=== PATIENT | female | born 1975 | race Caucasian/White ===

== ENCOUNTER 2018-05-24 14:27 | Inpatient (IN) | payer BC ==
--- NOTE | 2018-05-24 15:01 | ED ---
General Adult HPI - General Chief complaint: Shortness of Breath Stated complaint: low blood pressure Time Seen by Provider: 05/24/18 14:30 Source: patient, RN notes reviewed Mode of arrival: ambulatory Limitations: no limitations - History of Present Illness Initial comments: This is a 42-year-old female presents to the emergency department after having an attempted knee surgery this morning. Patient was at the surgical site of when she states she was put under and intubated and her heart rate went up and her blood pressure went up and so she was given some blood pressure medication. This is all per the staff after she awoke. Patient states at this point in time they sent her to a primary medical care doctor's office she went to that office and was seen by PA the PA got a low blood pressure and her pulse ox at the time according to the PA was 91% and so he sent her to the emergency department. Patient has no complaints at this time other feeling a little bit tired and hungry she has anything since yesterday at 7 PM. Patient denies any shortness of breath or chest pain. Patient denies any fever chills per patient states she did have a cough earlier but is resolved and the cough did begin after she was put on here. Patient denies abdominal pain patient denies nausea vomiting. - Related Data Home Medications Medication Instructions Recorded Confirmed No Known Home Medications 05/24/18 05/24/18 Allergies Allergy/AdvReac Type Severity Reaction Status Date / Time No Known Allergies Allergy Verified 05/24/18 16:18 Review of Systems ROS Statement: Those systems with pertinent positive or pertinent negative responses have been documented in the HPI. ROS Other: All systems not noted in ROS Statement are negative. Past Medical History Past Medical History: No Reported History History of Any Multi-Drug Resistant Organisms: None Reported Past Surgical History: Section Additional Past Surgical History / Comment(s): partial thyroidectomy Past Psychological History: No Psychological Hx Reported Smoking Status: Never smoker Past Alcohol Use History: Occasional Past Drug Use History: None Reported General Exam - General Exam Comments Initial Comments: GENERAL: Patient is well-developed and well-nourished. Patient is nontoxic and well- hydrated and is in mild distress. ENT: Neck is soft and supple. No significant lymphadenopathy is noted. Oropharynx is clear. Moist mucous membranes. Neck has full range of motion without eliciting any pain. EYES: The sclera were anicteric and conjunctiva were pink and moist. Extraocular movements were intact and pupils were equal round and reactive to light. Eyelids were unremarkable. PULMONARY: Unlabored respirations. Good breath sounds bilaterally. Crackles bilaterally. CARDIOVASCULAR: There is a regular rate and rhythm without any murmurs gallops or rubs. ABDOMEN: Soft and nontender with normal bowel sounds. No palpable organomegaly was noted. There is no palpable pulsatile mass. SKIN: Skin is clear with no lesions or rashes and otherwise unremarkable. NEUROLOGIC: Patient is alert and oriented x3. Cranial nerves II through XII are grossly intact. Motor and sensory are also intact. Normal speech, volume and content. Symmetrical smile. MUSCULOSKELETAL: Normal extremities with adequate strength and full range of motion. LYMPHATICS: No significant lymphadenopathy is noted PSYCHIATRIC: Normal psychiatric evaluation. Limitations: no limitations Course Vital Signs 05/24/18 05/24/18 05/24/18 14:30 14:50 15:00 Temperature 98.3 F Pulse Rate 98 89 Respiratory 18 20 Rate Blood Pressure 99/66 104/75 104/75 O2 Sat by Pulse 95 96 Oximetry 05/24/18 05/24/18 15:38 16:00 Temperature Pulse Rate 95 Respiratory 18 31 H Rate Blood Pressure 97/69 97/69 O2 Sat by Pulse Oximetry Medical Decision Making - Medical Decision Making EKG shows normal sinus rhythm at 85 bpm NM interval 250 QRS is 88 QT interval 366 QTC is 435 per patient's EKG shows no ST segment elevation or depression or T wave abnormalities are noted. Chest x-ray shows acute pulmonary edema Patient's troponin was elevated. I spoke with Dr. Isaac he agreed the patient should be on heparin and start Lasix with the patient. I spoke with Dr. Romero he agreed to admit the patient I admitted the patient started patient on heparin and Lasix I continued Lasix on the floor. I continued heparin the floor as well. - Lab Data Result diagrams: 05/24/18 15:05 05/24/18 15:05 Lab Results 05/24/18 05/24/18 05/24/18 Range/Units 15:05 15:05 15:05 WBC 12.8 H (3.8-10.6) k/uL RBC 4.80 (3.80-5.40) m/uL Hgb 13.8 (11.4-16.0) gm/dL Hct 41.5 (34.0-46.0) % MCV 86.4 (80.0-100.0) fL MCH 28.7 (25.0-35.0) pg MCHC 33.2 (31.0-37.0) g/dL RDW 14.2 (11.5-15.5) % Plt Count 260 (150-450) k/uL Neutrophils % 93 % Lymphocytes % 5 % Monocytes % 1 % Eosinophils % 1 % Basophils % 0 % Neutrophils # 11.8 H (1.3-7.7) k/uL Lymphocytes # 0.7 L (1.0-4.8) k/uL Monocytes # 0.1 (0-1.0) k/uL Eosinophils # 0.1 (0-0.7) k/uL Basophils # 0.0 (0-0.2) k/uL PT 10.0 (9.0-12.0) sec INR 0.9 (<1.2) APTT 22.5 (22.0-30.0) sec Sodium 138 (137-145) mmol/L Potassium 4.2 (3.5-5.1) mmol/L Chloride 104 (98-107) mmol/L Carbon Dioxide 22 (22-30) mmol/L Anion Gap 12 mmol/L BUN 12 (7-17) mg/dL Creatinine 0.51 L (0.52-1.04) mg/dL Est GFR (CKD-EPI)AfAm >90 (>60 ml/min/1.73 sqM) Est GFR (CKD-EPI)NonAf >90 (>60 ml/min/1.73 sqM) Glucose 136 H (74-99) mg/dL Calcium 9.4 (8.4-10.2) mg/dL Magnesium 1.9 (1.6-2.3) mg/dL Total Bilirubin 0.5 (0.2-1.3) mg/dL AST 76 H (14-36) U/L ALT 113 H (9-52) U/L Alkaline Phosphatase 62 (38-126) U/L Troponin I (0.000-0.034) ng/mL Total Protein 7.6 (6.3-8.2) g/dL Albumin 4.4 (3.5-5.0) g/dL 04/17/19 Range/Units 15:05 WBC (3.8-10.6) k/uL RBC (3.80-5.40) m/uL Hgb (11.4-16.0) gm/dL Hct (34.0-46.0) % MCV (80.0-100.0) fL MCH (25.0-35.0) pg MCHC (31.0-37.0) g/dL RDW (11.5-15.5) % Plt Count (150-450) k/uL Neutrophils % % Lymphocytes % % Monocytes % % Eosinophils % % Basophils % % Neutrophils # (1.3-7.7) k/uL Lymphocytes # (1.0-4.8) k/uL Monocytes # (0-1.0) k/uL Eosinophils # (0-0.7) k/uL Basophils # (0-0.2) k/uL PT (9.0-12.0) sec INR (<1.2) APTT (22.0-30.0) sec Sodium (137-145) mmol/L Potassium (3.5-5.1) mmol/L Chloride (98-107) mmol/L Carbon Dioxide (22-30) mmol/L Anion Gap mmol/L BUN (7-17) mg/dL Creatinine (0.52-1.04) mg/dL Est GFR (CKD-EPI)AfAm (>60 ml/min/1.73 sqM) Est GFR (CKD-EPI)NonAf (>60 ml/min/1.73 sqM) Glucose (74-99) mg/dL Calcium (8.4-10.2) mg/dL Magnesium (1.6-2.3) mg/dL Total Bilirubin (0.2-1.3) mg/dL AST (14-36) U/L ALT (9-52) U/L Alkaline Phosphatase (38-126) U/L Troponin I 0.428 H* (0.000-0.034) ng/mL Total Protein (6.3-8.2) g/dL Albumin (3.5-5.0) g/dL Critical Care Time Critical Care Time: Yes Total Critical Care Time: 35 Disposition Clinical Impression: Acute pulmonary edema, Non-STEMI (non-ST elevated myocardial infarction) Disposition: ADMITTED IP TO THIS HOSP Referrals: [place], PAC [Primary Care Provider] - 1-2 days Time of Disposition: 16:29
[2018-05-24 15:19] LABS: Basophils % (A) 0 %; Eosinophils # (A) 0.1 k/uL (0-0.7); Eosinophils % (A) 1 %; HCT 41.5 % (34.0-46.0); HGB 13.8 gm/dL (11.4-16.0); Lymphocytes # (A) 0.7 k/uL (1.0-4.8); Lymphocytes % (A) 5 %; MCH 28.7 pg (25.0-35.0); MCHC 33.2 g/dL (31.0-37.0); MCV 86.4 fL (80.0-100.0); Mean Platelet Volume 7.3; Monocytes # (A) 0.1 k/uL (0-1.0); Monocytes % (A) 1 %; Neutrophils # (A) 11.8 k/uL (1.3-7.7); Neutrophils % (A) 93 %; Platelet Count 260 k/uL (150-450); RDW 14.2 % (11.5-15.5); WBC 12.8 k/uL (3.8-10.6)
[2018-05-24 15:31] LABS: INR 0.9 (<1.2); Partial Thromboplastin Time 22.5 sec (22.0-30.0)
[2018-05-24 15:38] LABS: ALT 113 U/L (9-52); AST 76 U/L (14-36); Albumin 4.4 g/dL (3.5-5.0); Alkaline Phosphatase 62 U/L (38-126); Anion Gap 12 mmol/L; Blood Urea Nitrogen 12 mg/dL (7-17); Calcium 9.4 mg/dL (8.4-10.2); Carbon Dioxide 22 mmol/L (22-30); Chloride 104 mmol/L (98-107); Glucose 136 mg/dL (74-99); Magnesium 1.9 mg/dL (1.6-2.3); Potassium 4.2 mmol/L (3.5-5.1); Sodium 138 mmol/L (137-145); Total Bilirubin 0.5 mg/dL (0.2-1.3); Total Protein 7.6 g/dL (6.3-8.2)
--- NOTE | 2018-05-24 15:54 | XR ---
EXAMINATION TYPE: XR chest 2V DATE OF EXAM: 05/24/2018 COMPARISON: NONE HISTORY: Chest pain per order. Increased heart rate and blood pressure. TECHNIQUE: Frontal and lateral views of the chest are obtained. FINDINGS: The cardiac silhouette size is mildly enlarged. Central bilateral opacities are present. N o pleural effusion or pneumothorax is seen bilaterally. Overlying EKG leads are seen. The osseous st ructures are intact. IMPRESSION: Correlate for CHF exacerbation as there is mild cardiomegaly with suspected mild to mode rate bilateral central alveolar edema. Correlate clinically to exclude bilateral acute infiltrates.
[2018-05-24] MEDS ORDERED: FUROSEMIDE 10 MG/ML 2 ML VIAL IV STA (16:24)
[2018-05-24] MEDS ORDERED: HEPARIN SODIUM,PORCINE 5,000 UNIT/ML 1 ML VIAL IV ONE (16:25)
[2018-05-24] MEDS ORDERED: NITROGLYCERIN SL TABS 0.4 MG TAB SUBLINGUAL PRN (16:30)
[2018-05-24] MEDS: HEPARIN SOD,PORK IN 0.45% NACL 25,000 UNIT in 0.45% NACL 1 250ML.BAG IV SCH (17:42)
[2018-05-25 00:05] VITALS: BMI 47.7
[2018-05-25 04:27] LABS: Cholesterol 183 mg/dL (<200); HDL Cholesterol 59 mg/dL (40-60); LDL Cholesterol,Calculated 109 mg/dL (0-99); Triglycerides 77 mg/dL (<150)
[2018-05-25] MEDS: HEPARIN SOD,PORK IN 0.45% NACL 25,000 UNIT in 0.45% NACL 1 250ML.BAG IV SCH (04:53)
[2018-05-25] MEDS: FUROSEMIDE 10 MG/ML 2 ML VIAL IV SCH ×2 (04:57→09:17)
--- NOTE | 2018-05-25 07:32 | ECHOF ---
Referral Reason:Acute pulmonary edema MEASUREMENTS -------- HEIGHT: 162.6 cm WEIGHT: 126.1 kg BP: IVSd: 0.9 cm (0.6 - 1.1) LVIDd: 5.6 cm (3.9 - 5.3) LVPWd: 1.0 cm (0.6 - 1.1) IVSs: 1.1 cm LVIDs: 4.6 cm LVPWs: 1.4 cm Ao Diam: 2.7 cm (2.0 - 3.7) AV Cusp: 1.4 cm (1.5 - 2.6) LA Diam: 2.4 cm (2.7 - 3.8) MV EXCURSION: 17.354 mm (> 18.000) MV EF SLOPE: 107 mm/s (70 - 150) EPSS: 0.6 cm MV E Dick: 0.71 m/s MV DecT: 174 ms MV A Dick: 1.06 m/s MV E/A Ratio: 0.67 RAP: 5.00 mmHg RVSP: 16.30 mmHg FINDINGS -------- Sinus rhythm. This was a technically difficult study with suboptimal views. The left ventricular size is normal. Left ventricular wall thickness is normal. Overall left vent ricular systolic function is moderately impaired with, an EF between 35 - 40 %. Mid to Basal inferos eptal LV wall motion is hypokinetic. Basal inferolateral hypokinesis. The right ventricle is normal in size. The left atrial size is normal. The right atrial size is normal. 5.0mg of Lumason was utilized for enhancement of images The aortic valve is trileaflet and appears structurally normal. Mild mitral regurgitation is present. Trace tricuspid regurgitation present. The right ventricular systolic pressure, as measured by Dopp ler, is 16.30mmHg. There is no pulmonic regurgitation present. The aortic root size is normal. IVC Not well visulized. There is no pericardial effusion. CONCLUSIONS -------- 1. Sinus rhythm. 2. This was a technically difficult study with suboptimal views. 3. The left ventricular size is normal. 4. Left ventricular wall thickness is normal. 5. Overall left ventricular systolic function is moderately impaired with, an EF between 35 - 40 %. 6. Basal inferoseptal LV wall motion is hypokinetic. 7. Mid to Basal inferolateral hypokinesis. 8. The right ventricle is normal in size. 9. The left atrial size is normal. 10. The right atrial size is normal. 11. 5.0mg of Lumason was utilized for enhancement of images 12. The aortic valve is trileaflet and appears structurally normal. 13. Mild mitral regurgitation is present. 14. Trace tricuspid regurgitation present. 15. The right ventricular systolic pressure, as measured by Doppler, is 16.30mmHg. 16. There is no pulmonic regurgitation present. 17. The aortic root size is normal. 18. IVC Not well visulized. 19. There is no pericardial effusion. AMMUNITION SPECIALIST: Corina Denson RDCS
[2018-05-25] MEDS ORDERED: ASPIRIN 325 MG TAB PO SCH (09:00)
[2018-05-25] MEDS ORDERED: LISINOPRIL 2.5 MG TAB PO SCH (09:15)
--- NOTE | 2018-05-25 09:29 | CONS ---
CONSULTATION DATE OF CONSULTATION: 05/24/2018 This is a 42-year-old lady that I saw in the emergency room when she presented with symptoms of shortness of breath and elevated troponin. The patient was at the [facility] for an arthroscopy and following the arthroscopy apparently had some issues. We are not quite sure what they were, was sent to her primary care physician. From there, she showed up in the emergency room at [facility]. Her first set of troponin was slightly elevated at 0.42 for which Cardiology had been consulted. Her EKG showed sinus rhythm without significant ST-T wave changes. An echocardiogram revealed LV systolic dysfunction with wall motion abnormalities with an ejection fraction of 35% to 40%. Her inferoseptal and inferolateral wall appear hypokinetic. The patient was treated with intravenous heparin, aspirin and nitrates and she remained essentially symptom-free in fact she did not have any symptoms even when we first met her in the ER. I talked to her at length, explained to her her condition, the various etiological possibilities and the plan was to watch her overnight. PAST MEDICAL HISTORY: Past medical history is negative for hypertension, diabetes, dyslipidemia. MEDICATIONS: None. ALLERGIES: None. FAMILY HISTORY: Family history is negative for premature coronary artery disease. SOCIAL HISTORY: She denies smoking, EtOH abuse or drug abuse. REVIEW OF SYSTEMS: HEENT is unremarkable. CARDIAC: As described above. RESPIRATORY: Negative. GI: Negative. GENITOURINARY: Negative. ALLERGY/IMMUNOLOGY: Negative. SKIN: Negative. MUSCULOSKELETAL: Negative. ENDOCRINE: Negative. HEMATOLOGICAL: Negative. PSYCHOSOCIAL: Negative. The rest of the system review is not relevant. PHYSICAL EXAMINATION: On exam, she is comfortable at rest. Vital signs are stable. There is no jugular venous distention. Chest exam reveals good air entry bilaterally. Heart exam reveals first and second heart sounds. No gallop. No murmur. No rub. Abdomen is soft, nontender. Examination of extremities did not reveal any edema. Peripheral pulses are felt. Her O2 saturation was normal in room air. Initial lab showed a hemoglobin of 13.8, platelet count is 260. Troponin is slightly elevated. Creatinine is normal. ASSESSMENT: Qwe-FC-[id number] elevation myocardial infarction. PLAN: Patient will be treated with intravenous heparin, aspirin and see how her symptoms and clinical course evolves and decide on further course of action. MMODL / IJN: [id number] /
--- NOTE | 2018-05-25 09:32 | PN ---
PROGRESS NOTE Brenda is a 42-year-old lady whom I initially evaluated in the emergency room yesterday following her initial presentation due to some issues during anesthesia during an arthroscopy. The exact events of that time are unclear. She has been in the hospital overnight and her troponin levels have come down. Her total cholesterol is 183, LDL is 109, HDL is normal. Her troponins were 0.4, 0.4 and 0.3. She denies any chest pain. Echo shows wall motion abnormalities and LV systolic dysfunction. It is unclear whether this is new or old. I explained all the issues at length to the patient and advised her to undergo cardiac catheterization today to evaluate her coronary anatomy and her management. Understanding risks, benefits, she does not wish to go through cardiac cath but wishes to manage with medical therapy and have reassessment of her LV function. We will consider repeating an echo on her over the next several weeks and also consider an outpatient stress test. On exam today, she is comfortable at rest. Vital signs are stable. There is no jugular venous distention. Carotid upstroke is normal. There is no bruit. Chest exam reveals good air entry bilaterally. Heart exam reveals first and second heart sounds. No gallop. No murmur. No rub. Abdomen is soft, nontender. Examination of extremities did not reveal edema. Peripheral pulses are felt. ASSESSMENT: Non ST-segment elevation myocardial infarction. PLAN: I will add beta blockers, JAYNA inhibitors. Continue the aspirin. Stop the heparin this afternoon and we will get her up, ambulate her and see how she does. MMODL / IJN: [id number] /
[2018-05-25] MEDS ORDERED: NITROGLYCERIN SL TABS 0.4 MG TAB SUBLINGUAL PRN (11:22)
[2018-05-25] MEDS ORDERED: ALPRAZolam 0.25 MG TAB PO PRN (11:22)
[2018-05-25] MEDS ORDERED: SODIUM CHLORIDE 0.9% 1,000 ML in EMPTY BAG 1 BAG IV ONE (11:22)
[2018-05-25] MEDS ORDERED: ATORVASTATIN 80 MG TAB PO STA (11:22)
[2018-05-25] MEDS ORDERED: ASPIRIN 325 MG TAB PO STA (11:22)
[2018-05-25] MEDS ORDERED: ALPRAZolam 0.5 MG TAB PO PRN (11:22)
[2018-05-25] MEDS: METOPROLOL SUCCINATE (ER) 25 MG TAB.ER.24H PO SCH (11:59)
--- NOTE | 2018-05-25 13:08 | P.HPIM ---
History of Present Illness H&P Date: 05/25/18 This is a 42-year-old female patient presents to ER with complaints of elevated heart rate and blood pressure during attempted knee scope chest scope procedure this AM. Patient was instructed to her PCP where she was told she had low blood pressure and low pulse ox was sent to the ER for further evaluation. Patient denies any symptoms other than abnormal vitals. Patient denies any significant medical history. Patient reports she's had a AND partial thyroidectomy. Patient denies cardiac history. Patient denies any significant family history of cardiac disease. Patient denies smoking. Patient denies any recent illness. Patient denies cough or shortness of breath. Patient denies fever nausea or vomiting. Chest x-ray completed showing correlation for CHF exacerbation is very mild cardiomegaly with suspected mild to moderate lateral central annular edema. Correlate clinically to exclude bilateral acute infiltrates. EKG completed showing normal sinus rhythm with moderate voltage criteria for LVH may be variant. Patient having elevated troponins at 0.428, 0.474 and 0.305. Patient has been started on heparin drip and cardiology services have been consulted. 2-D echo completed showing EF of 35-40% with mid to basal inferior septal LV wall motion. Discussed case with cardiology nurse practitioner. Patient will undergo cardiac catheterization today. At this time patient is tearful. Patient states she just feels overwhelmed with this new information. Patient's at bedside. At this time patient denies chest pain or shortness breath. Patient denies nausea vomiting or diarrhea. Patient denies any urinary burning or frequency Review of Systems please refer to HPI otherwise unremarkable Past Medical History Past Medical History: No Reported History History of Any Multi-Drug Resistant Organisms: None Reported Past Surgical History: Section Additional Past Surgical History / Comment(s): partial thyroidectomy Additional Past Anesthesia/Blood Transfusion Reaction / Comment(s): patient was told her blood pressure and heart rate increased when put under for knee scope 05/24/18, unsure of medications given. Past Psychological History: No Psychological Hx Reported Smoking Status: Never smoker Past Alcohol Use History: Occasional Past Drug Use History: None Reported Medications and Allergies Home Medications Medication Instructions Recorded Confirmed Type No Known Home Medications 05/24/18 05/24/18 History Allergies Allergy/AdvReac Type Severity Reaction Status Date / Time No Known Allergies Allergy Verified 05/24/18 16:18 Physical Exam Vitals: Vital Signs Temp Pulse Pulse Resp BP BP Pulse Ox 05/25/18 07:50 15 05/25/18 04:00 98.4 F 84 15 128/83 97 05/25/18 00:00 91 18 137/85 97 05/24/18 20:00 91 18 05/24/18 19:59 98.0 F 92 18 125/75 98 05/24/18 18:47 91 18 122/72 96 05/24/18 18:30 122/72 05/24/18 18:00 95 34 H 120/71 05/24/18 17:33 99.1 F 104 H 18 154/83 96 05/24/18 17:00 71 18 111/75 05/24/18 16:30 84 16 107/72 05/24/18 16:00 95 31 H 97/69 05/24/18 15:38 18 97/69 05/24/18 15:00 89 20 104/75 05/24/18 14:50 104/75 96 05/24/18 14:30 98.3 F 98 18 99/66 95 Intake and Output 05/24/18 05/25/18 05/25/18 22:59 06:59 14:59 Intake Total 111.833 0 Balance 111.833 0 Intake: Intake, IV Titration 111.833 Amount Heparin Sod,Pork in 0.45% 111.833 NaCl 25,000 unit In 0.45 % NaCl 1 250ml.bag @ 7. 925 UNITS/KG/HR 10 mls/hr IV .Q24H [facility] Rx#: [id number] Oral 0 Other: Voiding Method Toilet # Voids 1 1 Weight 123.8 kg Head normocephalic Neck supple Lungs clear to auscultation bilaterally no wheezing or crackles Heart regular rate and rhythm S1-S2, no rub or gallop Abdomen is soft nontender nondistended positive bowel sounds no hepa tosplenomegaly Extremities no edema Neuro alert and orientated to 3 Results CBC & Chem 7: 05/24/18 15:05 05/24/18 15:05 Labs: Abnormal Lab Results - Last 24 Hours (Table) 05/24/18 05/24/18 05/24/18 Range/Units 15:05 15:05 15:05 WBC 12.8 H (3.8-10.6) k/uL Neutrophils # 11.8 H (1.3-7.7) k/uL Lymphocytes # 0.7 L (1.0-4.8) k/uL APTT (22.0-30.0) sec Creatinine 0.51 L (0.52-1.04) mg/dL Glucose 136 H (74-99) mg/dL AST 76 H (14-36) U/L ALT 113 H (9-52) U/L Troponin I 0.428 H* (0.000-0.034) ng/mL LDL Cholesterol, Calc (0-99) mg/dL 05/24/18 05/25/18 05/25/18 Range/Units 21:09 00:04 02:38 WBC (3.8-10.6) k/uL Neutrophils # (1.3-7.7) k/uL Lymphocytes # (1.0-4.8) k/uL APTT 50.3 H (22.0-30.0) sec Creatinine (0.52-1.04) mg/dL Glucose (74-99) mg/dL AST (14-36) U/L ALT (9-52) U/L Troponin I 0.474 H* 0.305 H* (0.000-0.034) ng/mL LDL Cholesterol, Calc (0-99) mg/dL 05/25/18 05/25/18 Range/Units 02:41 07:52 WBC (3.8-10.6) k/uL Neutrophils # (1.3-7.7) k/uL Lymphocytes # (1.0-4.8) k/uL APTT 54.9 H (22.0-30.0) sec Creatinine (0.52-1.04) mg/dL Glucose (74-99) mg/dL AST (14-36) U/L ALT (9-52) U/L Troponin I (0.000-0.034) ng/mL LDL Cholesterol, Calc 109 H (0-99) mg/dL Thrombosis Risk Factor Assmnt - Choose All That Apply Any of the Below Risk Factors Present?: Yes Each Factor Represents 1 point: Obesity (BMI >25) Other Risk Factors: No Other congenital or acquired thrombophilia - If yes, enter type in comment: No Thrombosis Risk Factor Assessment Total Risk Factor Score: 1 Thrombosis Risk Factor Assessment Level: Low Risk Assessment and Plan Assessment: 1. Non-ST segment elevated myocardial infarction. Patient is currently on heparin drip. Patient troponins elevated at 0.48, 0.474 and 0.305. Patient started on heparin drip. Cardiology services have been consulted. Planning cardiac cath today. 2-D echo completed showing EF of 35-40%. 2. CHF. Cardiology services are following. Patient started on Lasix 20 mg every 12 hours. Chest x-ray completed showing correlation for CHF exacerbation as there is mild cardiomegaly with suspected mild to moderate bilateral central alveolar edema. Correlate clinically to exclude bilateral acute infiltrates. 3. Recent knee procedure. They were unable to complete episodes due to elevated heart rate and blood pressure 4. History of 5. History of partial thyroidectomy Patient currently on heparin drip Cardiac cath today or tomorrow Repeat chest x-ray ordered Lasix 20 mg every 12 hours Time with Patient: Greater than 30 (Greater than 60% of the total time spent in counseling and coordination of care. I performed an examination of the patient and discussed their management with the Nurse Practitioner. I have reviewed the Nurse Practitioner's notes and agree with the documented findings and plan of care)
[2018-05-25] MEDS ORDERED: LIDOCAINE 1% INJ 10MG/ML (20 ML MDV) ONE (13:57)
[2018-05-25] MEDS ORDERED: fentaNYL (PF) 50 MCG/ML 2 ML AMP ONE (13:58)
[2018-05-25] MEDS ORDERED: IV FLUID CONTINUATION 300 ML IV ONE (14:25)
[2018-05-25] MEDS ORDERED: MIDAZOLAM (PF) 2 MG/2 ML VIAL IVP ONE (14:25)
[2018-05-25] MEDS ORDERED: LIDOCAINE 1% INJ 10MG/ML (20 ML MDV) SQ ONE (14:27)
[2018-05-25] MEDS ORDERED: fentaNYL (PF) 50 MCG/ML 2 ML AMP IV ONE (14:32)
[2018-05-25] MEDS ORDERED: RX INFO: IV CONTRAST WAS GIVEN 1 EACH MISC MISCELLANE PRN (14:50)
[2018-05-25] MEDS ORDERED: IOPAMIDOL-370 100ML BTL INJ ONE (14:57)
[2018-05-25] MEDS: SODIUM CHLORIDE 0.9% 1,000 ML IV SCH (18:18)
--- NOTE | 2018-05-25 20:02 | CC ---
CARDIAC CATHETERIZATION REPORT INDICATION: Non ST-segment elevation LA. PROCEDURE NOTE: After obtaining informed consent, left heart catheterization and coronary angiogram are performed via the right femoral artery using standard Radhames catheters the patient tolerated the procedure well without any obvious immediate complications. A femoral angiogram was performed and Angio-Seal was deployed for hemostasis. The patient has received moderate conscious sedation. Total sedation time was 15 minutes. HEMODYNAMICS: Left ventricular end-diastolic pressure is 4 to 6 mm. There is no significant gradient across aortic valve. LEFT VENTRICULOGRAM: Left ventriculogram is performed in PRYOR position and shows normal left ventricular size and wall motion. Ejection fraction is 65%. ANGIOGRAPHIC DATA: LEFT MAIN CORONARY ARTERY: Left main coronary artery is a normal-sized vessel and is free of stenosis. Divides into left anterior descending coronary artery and circumflex coronary arteries. LEFT ANTERIOR DESCENDING CORONARY ARTERY: LAD and its branches, circumflex coronary artery and its branches are free of significant stenosis. RIGHT CORONARY ARTERY: There was significant dampening in the right coronary artery. Hence we only obtained 1 view, but it shows small right coronary artery. CONCLUSION: Normal coronaries. Normal LV function. Normal wall motion. PLAN: The exact etiology for the patient's clinical presentation yesterday is unclear. She was to undergo arthroscopy, apparently has had issues and was sent to primary care physician, from there was sent to the emergency room. We do not have any information from that time as to what exactly transpired. She had mild troponin elevation could be related to could be stress induced and there were also wall motion abnormalities. The LV gram looks normal. She does not require antiplatelet agent. Does not have significant obstructive CAD. She will work on risk factor modification and will be placed on beta blockers and JAYNA inhibitors for the next several weeks and if she is doing well, I will stop that too. If the patient still needs arthroscopy of the knee please do it in the hospital instead of doing it at an outpatient stand-alone surgical center. MMODL / IJN: [id number] /
[2018-05-25] MEDS ORDERED: ATORVASTATIN 20 MG TAB PO SCH (21:00)
[2018-05-26] MEDS: SODIUM CHLORIDE 0.9% 1,000 ML IV SCH (06:35)
[2018-05-26] MEDS ORDERED: PANTOPRAZOLE 40 MG TABLET PO SCH (07:30)
[2018-05-26 07:32] LABS: Basophils # (A) 0.1 k/uL (0-0.2); Basophils % (A) 1 %; Eosinophils # (A) 0.1 k/uL (0-0.7); Eosinophils % (A) 1 %; HCT 39.9 % (34.0-46.0); HGB 12.8 gm/dL (11.4-16.0); Lymphocytes # (A) 2.3 k/uL (1.0-4.8); Lymphocytes % (A) 25 %; MCH 28.1 pg (25.0-35.0); MCHC 32.1 g/dL (31.0-37.0); MCV 87.4 fL (80.0-100.0); Monocytes # (A) 0.6 k/uL (0-1.0); Monocytes % (A) 7 %; Neutrophils # (A) 6.1 k/uL (1.3-7.7); Neutrophils % (A) 65 %; Platelet Count 246 k/uL (150-450); RBC 4.57 m/uL (3.80-5.40); WBC 9.4 k/uL (3.8-10.6)
[2018-05-26 07:45] LABS: ALT 116 U/L (9-52); AST 60 U/L (14-36); Albumin 4.3 g/dL (3.5-5.0); Alkaline Phosphatase 57 U/L (38-126); Anion Gap 9 mmol/L; Blood Urea Nitrogen 13 mg/dL (7-17); Calcium 9.1 mg/dL (8.4-10.2); Carbon Dioxide 23 mmol/L (22-30); Chloride 107 mmol/L (98-107); Glucose 99 mg/dL (74-99); Potassium 4.1 mmol/L (3.5-5.1); Sodium 139 mmol/L (137-145); Total Bilirubin 0.7 mg/dL (0.2-1.3); Total Protein 7.4 g/dL (6.3-8.2)
[2018-05-26] MEDS: METOPROLOL SUCCINATE (ER) 25 MG TAB.ER.24H PO SCH (09:04)
[2018-05-26] MEDS ORDERED: METOPROLOL TARTRATE 12.5 MG TAB PO SCH (09:15)
--- NOTE | 2018-05-26 09:26 | XR ---
EXAMINATION TYPE: XR chest 2V DATE OF EXAM: 05/26/2018 COMPARISON: 05/24/2018 TECHNIQUE: PA and lateral views submitted. HISTORY: Abnormal x-ray FINDINGS: Persistent diffuse interstitial pattern which may be slightly improved on today's exam. More nodular component the right lower lobe. No pleural effusion or pneumothorax. Heart size stable. Heart remains mildly enlarged. IMPRESSION: Improving interstitial pattern correlate for improving CHF or interstitial pneumonia. Fol low-up to resolution recommended to exclude nodule right lung base.
--- NOTE | 2018-05-26 11:48 | CDI ---
Documentation Clarification Form Date: 05/26/2018 11:37:01 AM From: Steffanie ShcmidtChristensenDANA, CCDS Admit Date: 05/24/2018 4:30:00 PM Patient Name: Brenda Navarro Visit Number: [id number] Discharge Date: ATTENTION: The Clinical Documentation Specialists (CDI) and [facility] Coding Staff appreciate your assistance in clarifying documentation. Please respond to the clarification below the line at the bottom and electronically sign. The CDI & [facility] Coding staff will review the response and follow-up if needed. Please note: Queries are made part of the Legal Health Record. If you have any questions, please contact the author of this message via ITS. Dr. Carlos Romero: CHF is documented in the initial CXR, the History & Physical & the subsequent CXR. Diagnosed with NSTEMI. History/Risk Factors: No significant history. Clinical Indicators: Presents to ER with complaints of elevated heart rate and blood pressure during attempted knee scope chest scope procedure this AM. Patient was instructed by her PCP she was told she had low blood pressure and low pulse ox was sent to the ER for further evaluation. Patient denies any symptoms other than abnormal vitals. VS: BP 99/66 LAB: Troponins: 0.4, 0.5, 0.3 Echocardiogram Results: EF 35-40% systolic impaired. Mld TR, Trace TR. Chest X Ray 05/24: Correlate for CHF exacerbation as there is mild cardiomegaly with suspected mild to moderate bilateral central alveolar edema. Chest X Ray 05/26: Improving interstitial pattern correlate for improving CHF or interstitial pneumonia. Treatment: IV Lasix, IV Heparin drip, Nitro sl, Asa po. To labor relations manager: normal coronary arteries. In your professional opinion, can you please clarify the acuity and type of CHF if known? Congestive Heart Failure ruled out Systolic Heart Failure: o Acute o Chronic o Acute on Chronic Diastolic Heart Failure: o Acute o Chronic o Acute on Chronic Systolic & Diastolic Heart Failure: o Acute o Chronic o Acute on Chronic Heart Failure Unable to Determine Other, please specify Acute systolic congestive heart failure (Last Revision: May 2017) MTDD
[2018-05-26] MEDS ORDERED: LISINOPRIL 2.5 MG TAB PO SCH (12:00)
--- NOTE | 2018-05-26 12:02 | P.PN ---
Subjective Progress Note Date: 05/26/18 6 pleasant 42-year-old female who initially presented to the hospital with symptoms of shortness of breath. [facility], following administration of anesthesia, the patient became very tachycardic and hypertensive, subsequent hypotension and hypoxia. Therefore the procedure was not performed. She was advised to come to the hospital for further evaluation and treatment. Her echo revealed an ejection fraction of 35- 45% with inferior septal and inferior lateral wall hypokinesia. EKG showed normal sinus rhythm with nonspecific ST-T wave changes. Patient was also noted to have abnormality in her troponin of 0.42, 0.47 and 0.30. For these reasons she was advised to undergo cardiac catheterization. The risks and the benefits have been explained to the patient in detail. Cardiac catheterization revealed normal coronary arteries. The exact etiology for the patient's clinical presentation is unclear. It is possible that it may be an element of stress cardiomyopathy, could also be secondary to tachycardia and hypoxia. At this point in time, patient may be able to be discharged home from our perspective, a repeat echo will be performed in 2-[address] I pressure this morning 108/58 with a heart rate in the 70s, 97% on room air. White blood cell count 9.4, hemoglobin 12.8, platelet count 246. Sodium 139, potassium 4.1, BUN 13 and creatinine 0.5. AST 60 ALT 116 alk phos 57. Patient overall feels well, denies any shortness of breath, no chest discomfort, no dizziness or lightheadedness. Objective - Vital Signs Vital signs: Vital Signs Temp 98.1 F 05/26/18 04:00 Pulse 75 05/26/18 04:00 Resp 16 05/26/18 04:00 BP 107/57 05/26/18 04:00 Pulse Ox 97 05/26/18 04:00 Intake & Output 05/25/18 05/26/18 05/26/18 18:59 06:59 18:59 Intake Total 500 120 Balance 500 120 Weight 123.7 kg Intake: IV 200 Oral 300 120 Other: Voiding Method Toilet Toilet # Voids 2 1 - Exam PHYSICAL EXAMINATION: GENERAL: 42-year-old female in no acute distress at the time of my examination HEENT: Head is atraumatic, normocephalic. Pupils equal, round. Sclera anicteric. Conjunctiva are clear. Mucous membranes of the mouth are moist. Neck is supple. There is no elevated jugular venous pressure. No carotid bruit is heard. HEART EXAMINATION: Heart S1, S2 normal. No murmur or gallop heard. CHEST EXAMINATION: Lungs are clear to auscultation and precussion. No chest wall tenderness is noted on palpation or with deep breathing. ABDOMEN: Soft, nontender. Bowel sounds are heard. No organomegaly noted. EXTREMITIES: 2+ peripheral pulses with no evidence of peripheral edema and no calf tenderness noted. Right groin is soft, no evidence of any hematoma. NEUROLOGIC patient is awake, alert and oriented 3 . . - Labs CBC & Chem 7: 05/26/18 06:59 05/26/18 06:59 Labs: Abnormal Lab Results - Last 24 Hours (Table) 05/26/18 Range/Units 06:59 AST 60 H (14-36) U/L ALT 116 H (9-52) U/L Assessment and Plan Plan: Assessment and plan #1 symptoms of shortness of breath with associated tachycardia and hypoxia. Abnormality noted in troponins. LV function 35-40%. Status post cardiac catheterization which revealed normal coronary arteries. Plan From cardiology's perspective, it is possible that the patient's LV dysfunction and abnormality in troponin could be secondary to a type of stress steroids myopathy, also could be secondary to tachycardia and hypoxia. From cardiology's perspective, patient may be able to be discharged home today. She may proceed with her arthroscopic procedure, however Dr. Delarosa's recommendations are that she has a performed here at [facility]. Follow-up appointment will be made with Dr. Delarosa in the office post discharge. We will continue the patient on Lipitor 20 mg daily, lisinopril 2.5 mg daily, metoprolol 12-1/2 mg daily. DNP note has been reviewed, I agree with a documented findings and plan of care. Patient was seen and examined.
[2018-05-26 13:55] VITALS: RESP 18; TEMP 98.2
[2018-05-26 13:58] VITALS: BP 156/97; PULSE 76
--- NOTE | 2018-05-26 14:07 | P.DS ---
Providers Date of admission: 05/24/18 16:30 Expected date of discharge: 05/26/18 Attending physician: Carlos Romero Consults: 05/24/18 16:30 Consult Physician Urgent Consulting Provider: [facility] Consult Reason/Comments: N STEMI Do you want consulting provider notified?: Yes Primary care physician: JONAS Blount Hospital Course: Discharge diagnosis 1. Non-ST segment elevated myocardial infarction. Patient is currently on heparin drip. Patient troponins elevated at 0.48, 0.474 and 0.305. 2-D echo completed showing EF of 35-40%. Patient underwent heart yesterday REVEALED normal coronary arteries. Per cardiology is possible that the patient LV dysfunction abnormality in troponin could be secondary to a tight of stress s teroids myopathy also be secondary to tachycardia and hypoxia. Cardiology perspective patient is able to be discharged home today. patient to follow-up with cardiology services. Patient will be discharged on Lipitor lisinopril metoprolol 2. Acute systolic CHF. Cardiology services are following. Patient started on Lasix 20 mg every 12 hours. Chest x-ray completed showing correlation for CHF exacerbation as there is mild cardiomegaly with suspected mild to moderate bilateral central alveolar edema. Correlate clinically to exclude bilateral acute infiltrates. 3. Recent knee procedure. They were unable to complete episodes due to elevated heart rate and blood pressure 4. History of 5. History of partial thyroidectomy 6. Elevated liver enzymes. AST is 60 ALT 116. Patient reports that she has known chronic elevated liver enzymes in which he follows with GI services and has been told she has fatty liver. Patient advised to follow-up closely for further management Hospital course This is a 42-year-old female patient presents to ER with complaints of elevated heart rate and blood pressure during attempted knee scope chest scope procedure this AM. Patient was instructed to her PCP where she was told she had low blood pressure and low pulse ox was sent to the ER for further evaluation. Patient denies any symptoms other than abnormal vitals. Patient denies any significant medical history. Patient reports she's had a AND partial thyroidectomy. Patient denies cardiac history. Patient denies any significant family history of cardiac disease. Patient denies smoking. Patient denies any recent illness. Patient denies cough or shortness of breath. Patient denies fever nausea or vomiting. Chest x-ray completed showing correlation for CHF exacerbation is very mild cardiomegaly with suspected mild to moderate lateral central annular edema. Correlate clinically to exclude bilateral acute infiltrates. EKG completed showing normal sinus rhythm with moderate voltage criteria for LVH may be variant. Patient having elevated troponins at 0.428, 0.474 and 0.305. Patient has been started on heparin drip and cardiology services have been consulted. 2-D echo completed showing EF of 35-40% with mid to basal inferior septal LV wall motion. Discussed case with cardiology nurse practitioner. Patient will undergo cardiac catheterization today. At this time patient is tearful. Patient states she just feels overwhelmed with this new information. Patient's at bedside. At this time patient denies chest pain or shortness breath. Patient denies nausea vomiting or diarrhea. Patient denies any urinary burning or frequency On 05/26/2018 patient alert and oriented 3. Patient is very irritable home. Patient did have cardiac cath yesterday showed normal coronary arteries. Per cardiology patient may be discharged home. Plan is to discharge patient on Lipitor lisinopril metoprolol. Patient to follow-up outpatient for repeat 2-D echo. Patient also had mildly elevated liver enzymes. Will order repeat CMP in 3 days. Patient states she has known elevated liver enzymes. Patient does stat e she follows with GI services and has been told she has fatty liver. Repeat chest x-ray completed today showing improving interstitial pattern correlate for improving CHF or interstitial pneumonia. Follow up to resolution recommended to exclude nodule right lung base. Patient advised to follow-up with her PCP for follow-up CT in regards to these x-ray findings I performed an examination of the patient and discussed their management with the Nurse Practitioner. I have reviewed the Nurse Practitioner's notes and agree with the documented findings and plan of care Patient Condition at Discharge: Stable Plan - Discharge Summary Discharge Rx Participant: No New Discharge Prescriptions: New Atorvastatin [Lipitor] 20 mg PO HS #30 tab Metoprolol Tartrate [Lopressor] 12.5 mg PO DAILY #30 tab Lisinopril [Zestril] 2.5 mg PO DAILY@1200 #30 tab Discharge Medication List Atorvastatin [Lipitor] 20 mg PO HS #30 tab 05/26/18 [Rx] Lisinopril [Zestril] 2.5 mg PO DAILY@1200 #30 tab 05/26/18 [Rx] Metoprolol Tartrate [Lopressor] 12.5 mg PO DAILY #30 tab 04/19/19 [Rx] Follow up Appointment(s)/Referral(s): Junior Hernández PAC [Primary Care Provider] - 06/05/18 3:00 pm (Tuesday) Moises Isaac MD [STAFF PHYSICIAN] - 06/02/18 3:45 pm (Tuesday) Patient Instructions/Handouts: *Surgery [facility] - After Heart Catheterization - Fire Suppression Captain Instructions, Left Heart Catheterization (DC)
[2018-05-26] MEDS ORDERED: ATORVASTATIN 20 MG TAB PO SCH (21:00)
== END 2018-05-26 14:34 | disposition home or self-care (01) | DRG 280 ==
LOC: EC 14:27 → 3SCARD 16:30
PROVIDERS: ADMIT Internal Medicine; ATTEND Internal Medicine
PROC: B2111ZZ Fluoroscopy of Multiple Coronary Arteries using Low Osmolar Contrast (ICD-10-PCS; 2018-05-25)
PROC: B2151ZZ Fluoroscopy of Left Heart using Low Osmolar Contrast (ICD-10-PCS; 2018-05-25)
PROC: 4A023N7 Measurement of Cardiac Sampling and Pressure, Left Heart, Percutaneous Approach (ICD-10-PCS; principal; 2018-05-25 14:17)
DX: I21.A1 Myocardial infarction type 2 (principal); I50.21 Acute systolic (congestive) heart failure; Z68.42 Body mass index [BMI] 45.0-49.9, adult; I95.9 Hypotension, unspecified; K76.0 Fatty (change of) liver, not elsewhere classified; E89.0 Postprocedural hypothyroidism; R09.02 Hypoxemia; E66.9 Obesity, unspecified
CPT/HCPCS: 36415; 71046; 80053; 80061; 83735; 84484; 85025; 85610; 85730; 93005; 93306; 93458; 96365; 96366; 96375; 96376; 99291

== ENCOUNTER 2018-06-23 11:33 | Day surgery (SDC) | payer BC ==
[2018-06-20 14:26] VITALS: BMI 46.3
[~2018-06-23 11:33] MED LIST: DEXAMETHASONE SOD PHOSPHATE 10 MG/ML 1 ML VIAL IV ONE; HYDROmorphone 0.5 MG/0.5 ML SYRINGE IVP PRN; LACTATED RINGERS 1,000 ML IV SCH; LIDOCAINE 1% 20 ML VIAL (10MG/ML) FOR IV START INTRADERMA PRN; ONDANSETRON 4 MG/2 ML VIAL IVP ONE; Pre Op ABX Message 1 EACH MISC MISCELLANE ONE; fentaNYL (PF) 50 MCG/ML 2 ML AMP IV PRN
[2018-06-23] MEDS ORDERED: LACTATED RINGERS 1,000 ML IV ONE ×2 (11:55→13:58)
[2018-06-23 12:06] VITALS: RESP 16
[2018-06-23] MEDS: MIDAZOLAM 2 MG/2 ML VIAL IV PRN ×2 (12:30→12:38)
[2018-06-23] MEDS ORDERED: SCOPOLAMINE 1.5MG/72HR PATCH TRANSDERM ONE (12:58)
[2018-06-23] MEDS ORDERED: MIDAZOLAM 2 MG/2 ML VIAL ONE (12:59)
[2018-06-23] MEDS ORDERED: PROPOFOL 10 MG/ML 20 ML VIAL IV ONE (12:59)
[2018-06-23] MEDS ORDERED: fentaNYL (PF) 50 MCG/ML 2 ML AMP ONE (12:59)
[2018-06-23] MEDS ORDERED: ROPIVACAINE 5 MG/ML 30 ML VIAL MISCELLANE ONE ×2 (13:46→13:54)
[2018-06-23 14:21] VITALS: TEMP 97
[2018-06-23 14:55] VITALS: BP 141/93; PULSE 84
--- NOTE | 2018-07-14 12:15 | P.OP ---
Date of Procedure: 06/23/18 Procedure(s) Performed: PREOPERATIVE DIAGNOSIS: 1. Left knee medial meniscus tear 2. Left knee osteoarthritis, patellofemoral POSTOPERATIVE DIAGNOSIS: 1. Left knee medial and lateral meniscus tears 2. Left knee osteoarthritis, patellofemoral, grade 3 3. Left knee osteoarthritis, medial compartment grade 4 PROCEDURES PERFORMED: 1. Left knee arthroscopy, with partial medial meniscectomy (15%), posterior horn and partial lateral meniscectomy (5%), posterior horn 2. Left knee arthroscopic chondroplasty, patellofemoral and medial compartments 2. Left knee arthroscopic partial synovectomy ANESTHESIA: transition program manager: None COMPLICATIONS: none ESTIMATED BLOOD LOSS: Less than 10 ml DISPOSITION: To post-anesthesia care unit INDICATIONS: Shirlene is a 42-year-old female with a history of left knee pain on the medial side. MRI findings are suspicious for tear involving the posterior horn of the medial meniscus. Arthritis is also noted. Patient presents to the operating room today for arthroscopy with trimming of the meniscus or repair as necessary as well as chondroplasty or smoothing of the articular surfaces. I have explained the procedure in detail as well as potential risks and complications as being inclusive of but not limited to: Bleeding, infection, scarring, discomfort, blood vessel and/or nerve damage, failure to relieve symptoms, limitation of arthroscopy in the context of arthritis, persistence or recurrence and/or worsening of symptoms, blood clot, pulmonary embolism, limp, , and other risks, including the need for knee replacement. The consent form has been signed. PROCEDURE: After appropriate consent was obtained, the patient was taken to the operating room and placed supine on the operating table. General anesthesia was initiated. The knee was examined under anesthesia. Medial collateral, lateral collateral, anterior and posterior cruciate ligaments were all intact. Range of motion was 0 to 130 with mild crepitus in the patellofemoral compartment. Mild effusion but no soft tissue swelling was noted. Prepping and draping of the operative knee was performed in the usual sterile fashion using ChloraPrep. Care was taken that all pressure points were adequately padded. Leg peralta and pneumotourniquet were used. ``Time-out" was called [facility] to [facility] standards, confirming patient identity, surgical procedure, side, and no antibiotic administration, per protocol. The surgical portals were placed directly next to the patellar tendon medially and laterally. Camera and instruments were carefully inserted into the knee and arthroscopy was performed. Patellofemoral joint was first inspected. Mild synovitis was seen, and was resected where it appeared particularly inflamed. Patellofemoral joint was noted to be arthritic, with grade 3 changes present over 50 %. Chondroplasty was performed using a shaver and radiofrequency probe, removing unstable cartilage elements and smoothing the surface to eliminate step-off. Lateral compartment showed normal hyaline cartilage without defect. Lateral meniscus was visualized and probed, the anterior horn showing some mild degenerative fraying. Posterior horn showed some more moderate fraying and this was addressed using a shaver, removing less than 5% of the lateral meniscus. Popliteal hiatus was normal. Small loose floating cartilage fragment was noted in the lateral compartment and was removed. Medial compartment was then examined. Medial meniscus tear was noted involving the posterior horn and appeared to be a radial/stellate-type tear after visualization and probing. The meniscus tear was resected using a combination of basket forceps and shaver. Approximately 15 % of the meniscus was resected. The remaining meniscus was noted to be intact and stable. Medial compartment hyaline cartilage showed moderate deterioration centrally with one small area of bone exposure underneath the mid zone of the medial meniscus. This area was no larger than 5 mm x 5 mm or so. Cartilage surrounding this area was trimmed as necessary to remove step-off and remove loose fibers. Cruciate ligaments were noted to be intact. No loose bodies or ganglion cysts were noted around the cruciate ligaments. Medial and lateral gutters showed no evidence of loose bodies, but some mild synovitis was present and was resected with a shaver. Portals were then closed with 4-0 Monocryl suture. A quantity of Marcaine solution was injected into the knee and around the portal sites. Steri-Strips were applied and tourniquet was deflated. Sterile dressing and light compressive dressing was applied using Webril and JAYNA wrap. Patient tolerated the procedure well and taken to recovery room in stable condition. Sponge and needle counts were correct.
== END 2018-06-23 15:30 | disposition home or self-care (01) ==
LOC: OR 11:33
PROVIDERS: ATTEND Orthopaedic Surgery
DX: S83.242A Other tear of medial meniscus, current injury, left knee, initial encounter (principal); S83.282A Other tear of lateral meniscus, current injury, left knee, initial encounter; X58.XXXA Exposure to other specified factors, initial encounter; M17.12 Unilateral primary osteoarthritis, left knee; I42.9 Cardiomyopathy, unspecified; E66.01 Morbid (severe) obesity due to excess calories; Z68.42 Body mass index [BMI] 45.0-49.9, adult
CPT/HCPCS: 81025; 29880; J2250; J1100; J2405; J3010; J2795; J2704

== ENCOUNTER → 2019-01-16 | Outpatient (CLI) | payer BC ==
--- NOTE | 2019-01-18 13:37 | MM ---
Reason for exam: screening (asymptomatic). Last mammogram was performed 6 years ago. Physical Findings: A clinical breast exam by your physician is recommended on an annual basis and results should be correlated with mammographic findings. MG 3D Screening Mammo W/Cad Bilateral CC and MLO view(s) were taken. XCCL view(s) were taken of the left breast. Prior study comparison: January 25, 2013, bilateral digital screening mammo w/CAD. The breast tissue is almost entirely fat. There is no discrete abnormality. No significant changes when compared with prior studies. ASSESSMENT: Negative, BI-RAD 1 RECOMMENDATION: Routine screening mammogram of both breasts in 1 year.
== END | disposition home or self-care (01) ==
LOC: RADMAMWWP 09:11
PROVIDERS: ATTEND Obstetrics & Gynecology
DX: Z12.31 Encounter for screening mammogram for malignant neoplasm of breast (principal)
CPT/HCPCS: 77063; 77067

== ENCOUNTER → 2020-09-05 | Outpatient (CLI) | payer BC ==
--- NOTE | 2020-09-08 14:08 | MM ---
Reason for exam: screening (asymptomatic). Last mammogram was performed 1 year and 8 months ago. History: Took hormonal contraceptives for 3 years. Physical Findings: A clinical breast exam by your physician is recommended on an annual basis and results should be correlated with mammographic findings. MG 3D Screening Mammo W/Cad Bilateral CC and MLO view(s) were taken. Prior study comparison: January 16, 2019, bilateral MG 3d screening mammo w/cad. There are scattered fibroglandular densities. Finding: There is a new 5 mm partially obscured oval mass located 5 cm from the nipple in the outer quadrant, anterior middle position of the left breast. New finding since January 16, 2019. ASSESSMENT: Incomplete: need additional imaging evaluation, BI-RAD 0 RECOMMENDATION: Ultrasound of the left breast. [facility] will attempt to contact patient to return for ultrasound.
== END | disposition home or self-care (01) ==
LOC: RADMAMWWP 13:44
PROVIDERS: ATTEND Obstetrics & Gynecology
DX: Z12.31 Encounter for screening mammogram for malignant neoplasm of breast (principal); Z79.3 Long term (current) use of hormonal contraceptives
CPT/HCPCS: 77063; 77067

== ENCOUNTER → 2020-09-09 | Outpatient (CLI) | payer BC ==
--- NOTE | 2020-09-09 13:24 | USB ---
Reason for exam: additional evaluation requested from abnormal screening. History: Took hormonal contraceptives for 3 years. Physical Findings: Nurse did not find any significant physical abnormalities on exam. US Breast Workup Limited LT Left limited breast ultrasound including focal area of concern, retroareolar and axilla demonstrates no cystic or solid lesion seen. Scanned 12-4 o'clock. The 6mm circumscribed low density nodule on mammogram not appreciated by ultrasound. This is a probably benign finding for which 6 month follow up mammogram is recommended. These results were verbally communicated with the patient and result sheet given to the patient on 09/09/20. ASSESSMENT: Probably benign, BI-RAD 3 RECOMMENDATION: Follow-up diagnostic mammogram of the left breast in 6 months.
== END | disposition home or self-care (01) ==
LOC: RADUSWWP 12:37
PROVIDERS: ATTEND Obstetrics & Gynecology
DX: N64.89 Other specified disorders of breast (principal)

== ENCOUNTER → 2021-12-04 | Outpatient (CLI) | payer BC ==
--- NOTE | 2021-12-07 20:43 | MM ---
Reason for Exam: Screening (asymptomatic). Last mammogram was performed 1 year(s) and 3 month(s) ago. Patient History: Menarche at age 14. First Full-Term at age 30. Patient used Hormonal Contraceptives for 3 years. Last menstrual period: 11/13/2021 Risk Values: Brenda 5 year model risk: 0.9%. NCI Lifetime model risk: 10.7%. Prior Study Comparison: 01/16/2019 Bilateral Screening Mammogram, [facility]. 09/05/2020 Bilateral Screening Mammogram, [facility]. 05/15/2021 Left Diagnostic Mammogram, [facility]. Tissue Density: There are scattered fibroglandular densities. Findings: Analyzed By CAD. Chronic nodularity left breast. There is no suspicious group of microcalcifications or new suspicious mass in either breast. Overall Assessment: Benign, BI-RAD 2 Management: Screening Mammogram of both breasts in 1 year. 1. Patient should continue monthly self breast exams. 2. A clinical breast exam by your physician is recommended on an annual basis. 3. This exam should not preclude additional follow-up of suspicious palpable abnormalities. Electronically signed and approved by: González Faulkner M.D. Radiologist
== END | disposition home or self-care (01) ==
LOC: RADMAMWWP 13:58
PROVIDERS: ATTEND Obstetrics & Gynecology
DX: Z12.31 Encounter for screening mammogram for malignant neoplasm of breast (principal)
CPT/HCPCS: 77063; 77067

== ENCOUNTER → 2022-06-18 | Outpatient (CLI) | payer BC ==
--- NOTE | 2022-06-18 15:36 | US ---
EXAMINATION TYPE: US thyroid st tissue head/neck DATE OF EXAM: 06/18/2022 COMPARISON: US dated 2011. CLINICAL INDICATION: Female, 46 years old with history of R94.6 ABNRML THYROID FUNCT, E04.1 NONTOXIC SINGLE; GLAND SIZE: Right Lobe: Surgically absent Left Lobe: 5.2 x 2.0 x 2.9 cm Overall Parenchyma: heterogenous Isthmus Thickness: 0.5 cm NODULES LEFT: # of nodules measured on left: 2 1. 2.7 X 2.3 x 2.2 cm, lower medial, solid or almost completely solid, hypoechoic nodule, which is wider than tall, with smooth margins, without echogenic foci. Prior size: not seen on prior 2. 0.6 X 0.6 x 0.7 cm, mid mid, solid or almost completely solid, hypoechoic nodule, which is wide r than tall, with smooth margins, without echogenic foci. TR 4 Prior size: does not correlate with prior ISTHMUS: # of nodules measured in the isthmus: 0 Bilateral neck scanned, no evidence of lymphadenopathy. IMPRESSION: 1. Heterogenous left thyroid lobe with development of 2.7 cm TR 4 nodule. Fine-needle aspiration is recommended. 2. Additional subcentimeter left thyroid lobe TR 4 nodule. Attention on follow-up examination. 3. Postsurgical changes from right thyroidectomy. No suspicious soft tissue in the thyroidectomy bed .
== END | disposition home or self-care (01) ==
LOC: RADUSWWP 14:58
PROVIDERS: ATTEND Family Medicine
DX: E04.1 Nontoxic single thyroid nodule (principal); R94.6 Abnormal results of thyroid function studies
CPT/HCPCS: 76536

== ENCOUNTER → 2022-09-15 | Outpatient (CLI) | payer BC ==
--- NOTE | 2022-09-19 20:36 | NM ---
EXAMINATION TYPE: NM thyroid image only DATE OF EXAM: 09/17/2022 COMPARISON: Thyroid ultrasound 06/18/2022. CLINICAL INDICATION: Female, 46 years old with history of E04.1 NONTOXIC SINGLE THYROID NODULE; TECHNIQUE: After the intravenous administration of 10.3 mCi Tc 99m Sodium Pertechnetate. FINDINGS: Possible absence of uptake within the inferior thyroid gland in the area of thyroid nodule seen on pr ior thyroid ultrasound 06/18/2022. The right gland is surgically absent. There may be trace remnant ti ssue in the inferior aspect. IMPRESSION: Cold nodule in the left inferior thyroid gland. Further evaluation with fine-needle aspir ation recommended if not already performed.
== END | disposition home or self-care (01) ==
LOC: RADNMMAIN 10:54
PROVIDERS: ATTEND Surgery
DX: E04.1 Nontoxic single thyroid nodule (principal)
CPT/HCPCS: 78013; A9512

== ENCOUNTER 2022-10-19 12:47 | Day surgery (SDC) | payer BC ==
[2022-10-19 13:42] VITALS: RESP 18; TEMP 98.2
--- NOTE | 2022-10-19 14:57 | US ---
ULTRASOUND GUIDED FNA THYROID BIOPSY: CLINICAL HISTORY: Left thyroid nodule FINDINGS: The procedure was explained to the patient. The risks, complications, benefits and alternatives were discussed and any questions were answered. Informed consent was obtained. Patient was placed supin e on the ultrasound table and prepped and draped in the usual sterile fashion. Utilizing a 25 gauge needle, five passes were made into the requested left thyroid nodule. Patient was stable throughout the procedure. Pathology is pending. All elements of maximal barrier technique were utilized. IMPRESSION: 1. Successful ultrasound guided FNA thyroid biopsy.
[2022-10-19 15:03] VITALS: BP 119/75; PULSE 85
== END 2022-10-19 14:30 | disposition home or self-care (01) ==
LOC: RADPROMAIN 12:47
PROVIDERS: ATTEND Surgery
DX: E04.1 Nontoxic single thyroid nodule (principal)
CPT/HCPCS: 10005; 88173; 88305

== ENCOUNTER → 2023-03-24 | Outpatient (CLI) | payer BC ==
--- NOTE | 2023-03-25 14:56 | MM ---
Reason for Exam: Screening (asymptomatic). Last mammogram was performed 1 year(s) and 4 month(s) ago. Patient History: Menarche at age 14. First Full-Term at age 30. Patient used Hormonal Contraceptives for 3 years. Risk Values: Brenda 5 year model risk: 0.9%. NCI Lifetime model risk: 10.6%. Prior Study Comparison: 09/05/2020 Bilateral Screening Mammogram, [facility]. 05/15/2021 Left Diagnostic Mammogram, [facility]. 12/04/2021 Bilateral MG 3D screening mammo w/cad, [facility]. Tissue Density: The breast tissue is almost entirely fat. Findings: Analyzed By CAD. There is no suspicious group of microcalcifications or new suspicious mass. Overall Assessment: Negative, BI-RAD 1 Management: Screening Mammogram of both breasts in [address] [facility] will attempt to contact patient to return for supplemental views and ultrasound if indicated. Patient should continue monthly self-breast exams. A clinical breast exam by your physician is recommended on an annual basis. This exam should not preclude additional follow-up of suspicious palpable abnormalities. Note on Brenda scores and lifetime risk: 1. A Brenda score greater than 3% is considered moderate risk. If this is the case, consider specialist referral to assess eligibility for a risk reducing agent. 2. If overall lifetime risk for the development of breast cancer is 20% or higher, the patient may qualify for future screening with alternating mammogram and breast MRI. Electronically signed and approved by: Nabeel Muro DO
== END | disposition home or self-care (01) ==
LOC: RADMAMWWP 14:37
PROVIDERS: ATTEND Family Medicine
DX: Z12.31 Encounter for screening mammogram for malignant neoplasm of breast (principal)
CPT/HCPCS: 77063; 77067

== ENCOUNTER → 2023-10-21 | Outpatient (CLI) | payer BC ==
--- NOTE | 2023-10-21 16:06 | US ---
EXAMINATION TYPE: US thyroid st tissue head/neck DATE OF EXAM: 10/21/2023 COMPARISON: Thyroid ultrasound 06/18/2022, FNA ultrasound 10/19/2022 CLINICAL INDICATION: Female, 47 years old with history of E04.1 Thyroid nodule; Thyroid nodules rt si de removed GLAND SIZE: Right Lobe: Surgically absent Left Lobe: 6.0 x 2.5 x 2.7 cm Overall Parenchyma: heterogeneous Isthmus Thickness: 1.1 cm NODULES RIGHT: # of nodules measured on right: 0 LEFT: # of nodules measured on left: 2 1. 2.8 X 1.7 x 2.6 cm, lower , solid or almost completely solid, hypoechoic nodule, which is wider than tall, with smooth margins, without echogenic foci. TR 4. Previously FNA. Prior size: 2.7 x 2.3 x 2.2 cm 2. .7 X .6 x .8 cm, upper , solid or almost completely solid, hypoechoic nodule, which is wider th an tall, with smooth margins, without echogenic foci. TR 4. Prior size: .6 x .6 x .7 cm ISTHMUS: # of nodules measured in the isthmus: 0 Bilateral neck scanned, no evidence of lymphadenopathy. IMPRESSION: 1. Relatively stable left thyroid lobe nodules from prior exam. No new or enlarging thyroid nodules. 2. Posterior surgical changes from right thyroidectomy.
== END | disposition home or self-care (01) ==
LOC: RADUSWWP 14:51
PROVIDERS: ATTEND Surgery
DX: E04.2 Nontoxic multinodular goiter (principal)
CPT/HCPCS: 76536

== ENCOUNTER → 2024-06-21 | Outpatient (CLI) | payer BC ==
--- NOTE | 2024-06-21 11:40 | MM ---
Reason for Exam: Screening (asymptomatic). Last mammogram was performed 1 year(s) and 3 month(s) ago. Patient History: Menarche at age 14. First Full-Term at age 30. Patient used Hormonal Contraceptives for 3 years. Last menstrual period: 06/14/2024 Risk Values: Brenda 5 year model risk: 0.9%. NCI Lifetime model risk: 10.5%. Prior Study Comparison: 05/15/2021 Left Diagnostic Mammogram, [facility]. 12/04/2021 Bilateral MG 3D screening mammo w/cad, [facility]. 03/24/2023 Bilateral MG 3D screening mammo w/cad, [facility]. Tissue Density: There are scattered areas of fibroglandular density. Findings: Analyzed By CAD. There is enlarging 12 mm oval circumscribed mass in the middle the inferior slightly medial aspect left breast. Overall Assessment: Incomplete: need additional imaging evaluation, BI-RAD 0 Management: Diagnostic Breast Ultrasound of the left breast. Targeted ultrasound left breast. Patient should continue monthly self-breast exams. A clinical breast exam by your physician is recommended on an annual basis. This exam should not preclude additional follow-up of suspicious palpable abnormalities. Note on Brenda scores and lifetime risk: 1. A Brenda score greater than 3% is considered moderate risk. If this is the case, consider specialist referral to assess eligibility for a risk reducing agent. 2. If overall lifetime risk for the development of breast cancer is 20% or higher, the patient may qualify for future screening with alternating mammogram and breast MRI. [facility], , 06/21/2024 11:38 AM. Electronically signed and approved by: Ashutosh Harp M.D.
== END | disposition home or self-care (01) ==
LOC: RADMAMWWP 10:59
PROVIDERS: ATTEND Obstetrics & Gynecology
DX: Z12.31 Encounter for screening mammogram for malignant neoplasm of breast (principal); R92.323 Mammographic fibroglandular density, bilateral breasts; Z92.0 Personal history of contraception
CPT/HCPCS: 77063; 77067

== ENCOUNTER → 2024-06-25 | Outpatient (CLI) | payer BC ==
--- NOTE | 2024-06-25 15:51 | USB ---
Reason for Exam: Additional evaluation requested from abnormal screening. Patient History: Menarche at age 14. First Full-Term at age 30. Patient used Hormonal Contraceptives for 3 years. Risk Values: Brenda 5 year model risk: 0.9%. NCI Lifetime model risk: 10.5%. Technique: Method: Targeted. Prior Study Comparison: 12/04/2021 Bilateral MG 3D screening mammo w/cad, [facility]. 03/24/2023 Bilateral MG 3D screening mammo w/cad, [facility]. 06/21/2024 Bilateral MG 3D screening mammo w/cad, [facility]. Findings: The lower inner quadrant of the left breast and the retroareolar of the left breast were scanned. Technique utilized:US breast workup limited LT Image; Ultrasound imaging of: All 4 quadrants, the retroareolar region and axilla. Simple appearing cyst at 8:00 8 cm from the nipple measuring 9 x 4 x 6 mm. No evidence for mass. Overall Assessment: Benign, BI-RAD 2 Management: Screening Mammogram of both breasts in 1 year. A clinical breast exam by your physician is recommended on an annual basis and results should be correlated with mammographic findings. This exam should not preclude additional follow-up of suspicious palpable abnormalities. Results were given to the patient verbally at the time of exam. [facility], , 06/25/2024 3:48 PM. Electronically signed and approved by: Nabeel Muro DO
== END | disposition home or self-care (01) ==
LOC: RADUSWWP 15:25
PROVIDERS: ATTEND Obstetrics & Gynecology
DX: R92.8 Other abnormal and inconclusive findings on diagnostic imaging of breast (principal); Z92.0 Personal history of contraception